=== PATIENT | male | born 1980 | race Caucasian/White ===

== ENCOUNTER 2016-08-18 00:48 | Emergency (ER) | payer SELFPAY ==
[~2016-08-18] VITALS: Ht 177.8 cm; Wt 111.0 kg
[2016-08-18] MEDS ORDERED: TRAM50TA4 PO (00:53)
[2016-08-18 04:01] VITALS: BP 112/75
== END 2016-08-18 04:01 | disposition home or self-care (01) ==
LOC: EMS 00:50
DX: F29 Unspecified psychosis not due to a substance or known physiological condition (principal); F17.210 Nicotine dependence, cigarettes, uncomplicated; F15.90 Other stimulant use, unspecified, uncomplicated
CPT/HCPCS: 99285